=== PATIENT | male | born 1965 | race Caucasian/White ===

== ENCOUNTER 2017-04-04 11:52 | Emergency (ER) | payer MEDICAID ==
[~2017-04-04] VITALS: Ht 162.6 cm; Wt 75.0 kg
[2017-04-04 12:01] VITALS: Ht 162.6 cm; Wt 75.0 kg
--- NOTE | 2017-04-04 13:00 | ERA ---
ER Documentation Chief Complaint Date/Time DATE: 04/04/17 TIME: 12:59 Chief Complaint Pt with R ankle pain and swelling, R shoulder pain after fall. HPI The patient is a 51-year-old male, presenting to the ER because he fell off the ladder, complains of occipital headache, right shoulder pain, right ankle pain. He denies chest pain, dyspnea, abdominal pain, vomiting, diarrhea. He is smokes, denies drinking Past medical history: Hypertension, osteoarthritis Past surgical history: None ROS All systems reviewed and are negative except as per history of present illness. Medications Home Meds Reported Medications Prednisone* (Prednisone*) 20 Mg Tab, 10 MG PO DAILY, TAB 04/04/17 Olmesartan/Hydrochlorothiazide (Benicar Hct 40-25 mg Tablet) 1 Each Tablet, 1 EACH PO QAM, TAB 04/04/17 Allergies Allergies: Coded Allergies: No Known Allergy (Unverified , 04/04/17) Physical Exam Vitals Vital Signs Date Time Temp Pulse Resp B/P Pulse Ox O2 Delivery O2 Flow Rate FiO2 04/04/17 15:38 100 6.0 04/04/17 12:01 99.7 132 18 144/96 96 Physical Exam Const: No acute distress. Head: Occipital avulsion laceration, no bleeding Eyes: Normal Conjunctiva. ENT: Normal External Ears, Nose and Mouth. Neck: Full range of motion. No meningismus. Resp: Clear to auscultation bilaterally. Cardio: Regular rate and rhythm. Abd: Soft, non distended, normal bowel sounds, non tender. Skin: No petechiae or rashes. Back: No midline or flank tenderness. Ext: Right shoulder with vague tenderness, no laceration. Right ankle is edematous, tender, no laceration, palpable dorsalis and posterior tibialis Neur: Awake and alert. No focal deficit Psych: Normal Mood and Affect. Results 24 hrs Current Medications Medications (Trade) Dose Ordered Sig/Zoila Route PRN Reason Start Time Stop Time Status Last Admin Dose Admin Morphine Sulfate (morphine) 4 mg ONCE STAT IV 04/04/17 13:05 04/04/17 13:09 DC 04/04/17 13:24 Ondansetron HCl 4 mg 4 mg ONCE STAT IV 04/04/17 13:05 04/04/17 13:09 DC 04/04/17 13:24 Sodium Chloride (NS) 1,000 ml @ 1,000 mls/hr Q1H ONCE IV 04/04/17 15:00 04/04/17 15:59 DC 04/04/17 15:23 Propofol (Diprivan) 200 mg ONCE ONCE IV 04/04/17 15:00 04/04/17 15:01 DC Morphine Sulfate (morphine) 2 mg ONCE ONCE IV 04/04/17 15:00 04/04/17 15:01 DC Procedures/MDM [place] [address] Radiology Main Line: [phone] DIAGNOSTIC IMAGING REPORT Patient: TONY YEH : 1965 Age: 51 Sex: M MR #: [id number] DOS: 04/04/17 1305 Ordering MD: BALAJI VELA MD Location: E/R Room/Bed: PROCEDURE: Right shoulder 3 views CLINICAL INDICATION: Right shoulder pain and trauma. TECHNIQUE: AP internal and external rotation and transscapular Y views of the right shoulder were obtained COMPARISON: None available FINDINGS: Anterior dislocation of the humeral head in relation to the glenoid is identified. The osseous structures appear intact. No destructive bony lesions are observed. The acromioclavicular joint is unremarkable. Soft tissues are unremarkable. IMPRESSION: Anterior shoulder dislocation. If there is high clinical suspicion for additional traumatic injury, further evaluation with CT should be considered. RPTAT: AA .Terence Hoyos MD, MD Date Time Electronically viewed and signed by .Terence Hoyos MD, MD on 04/04/2017 14:14 .P/ CC: BALAJI VELA MD [place] [address] Radiology Main Line: [phone] DIAGNOSTIC IMAGING REPORT Patient: TONY YEH : 1965 Age: 51 Sex: M MR #: [id number] DOS: 04/04/17 1305 Ordering MD: BALAJI VELA MD Location: E/R Room/Bed: PROCEDURE: XR Chest. CLINICAL INDICATION: Shortness of breath TECHNIQUE: Single frontal chest x-ray. COMPARISON: None. FINDINGS: The lungs are clear of acute infiltrates, edema, effusions, or masses. There is elevation of the right hemidiaphragm. Calcific atherosclerosis of the aorta is present.. The cardiomediastinal silhouette is unremarkable. There is dislocation of the right glenohumeral joint.. IMPRESSION: No acute cardiopulmonary disease. Dislocation of the right glenohumeral joint. RPTAT: GG .Alejandro Chamorro MD, MD Date Time Electronically viewed and signed by .Alejandro Chamorro MD, MD on 04/04/2017 14:12 .L/ CC: BALAJI VELA MD [place] [address] Radiology Main Line: [phone] DIAGNOSTIC IMAGING REPORT Patient: TONY YEH : 1965 Age: 51 Sex: M MR #: [id number] DOS: 04/04/17 1305 Ordering MD: BALAJI VELA MD Location: E/R Room/Bed: PROCEDURE: CT cervical spine without contrast CLINICAL INDICATION: Trauma. Neck pain. TECHNIQUE: CT scan of the cervical spine was performed on a multidetector high -resolution CT scanner. No IV contrast was administered. Coronal and sagittal reformatted images were obtained from the axial source images. Images were reviewed on a high-resolution PACS workstation. One or more the following does reduction techniques were utilized: Automated exposure control, adjustment of the mA/ or kV according to patient's size, or use of iterative reconstruction technique. Exam CTDI = 22.06 mGy and the DLP = 395.49 mGy-cm. COMPARISON: None available. FINDINGS: There is straightening of the alignment of the cervical spine with loss of the normal cervical lordosis. There is 2 mm anterolisthesis at C3-C4 and C4-C5. No acute fracture or dislocation is seen. The vertebral body heights are preserved. No mass, hematoma, or other soft tissue abnormality is seen. There are multilevel mild to moderate degenerative changes of the cervical spine , manifested by osteophytosis and disc height narrowing, most prominent at C5- C6. Significant degenerative changes at the right articulation of the lateral mass of C1 with occipital condyle. Uncovertebral osteophytes and facet arthropathy result in moderate to severe left foraminal stenosis at C3-C4. Posterior disk osteophyte complexes contribute to mild spinal canal narrowing at C4-C5 and C5-C6. IMPRESSION: 1. Straightening of normal cervical lordosis. 2. No acute fracture or traumatic subluxation. 3. Multilevel mild to moderate degenerative changes of the cervical spine, most prominent at C5-C6. 4. Posterior disk osteophyte complexes contribute to mild spinal canal narrowing at C4-C5 and C5-C6. 5. Moderate to severe left foraminal stenosis at C3-C4. RPTAT: QQ .Carlos Amaral MD, MD Date Time Electronically viewed and signed by .Carlos Amaral MD, MD on 04/04/2017 13: 59 .N/ CC: BALAJI VELA MD [place] [address] Radiology Main Line: [phone] DIAGNOSTIC IMAGING REPORT Patient: TONY YEH : 1965 Age: 51 Sex: M MR #: [id number] DOS: 04/04/17 1305 Ordering MD: BALAJI VELA MD Location: E/R Room/Bed: PROCEDURE: CT head without intravenous contrast CLINICAL INDICATION: trauma. COMPARISON: None relevant listed. TECHNIQUE: Axial CT images from skull base to vertex with coronal and sagittal reformats. DOSE: The estimated administered radiation dose was CTDI vol = 44 mGy. DLP = 630 mGy-cm. One or more of the following dose reduction techniques were used: automated exposure control, adjustment of the mA and/or kV according to patient size, or use of iterative reconstruction. FINDINGS: Parenchyma: No acute hemorrhage, large territorial infarction, or mass. Mild amount of periventricular and subcortical white matter hypodensity, a nonspecific finding often associated with chronic microangiopathy. Ventricles: No ventriculomegaly or ventricular effacement. Extra-axial spaces: No herniation or midline shift. Paranasal sinuses: Clear. Mastoids and middle ears: Trace left mastoid effusion. Visualized orbits: Normal. Vessels: No calcified atherosclerotic arterial plaque identified. Bones: Normal. Extracranial soft tissues: Normal. Additional comment: None. IMPRESSION: No acute intracranial abnormality. RPTAT: PP Physician Jazz Date Time Electronically viewed and signed by Physician Jazz on 04/04/2017 13: 44 LG/ CC: BALAJI VELA MD [place] [address] Radiology Main Line: [phone] DIAGNOSTIC IMAGING REPORT Patient: TONY YEH : 1965 Age: 51 Sex: M MR #: [id number] DOS: 04/04/17 1305 Ordering MD: BALAJI VELA MD Location: E/R Room/Bed: PROCEDURE: XR Right Ankle 3 Views. CLINICAL INDICATION: Right ankle pain and trauma. TECHNIQUE: AP, oblique and lateral views of the right ankle was performed. COMPARISON: None. FINDINGS: Transverse, mildly displaced fracture through the lateral malleolus is identified. Additional obliquely oriented, mildly displaced fracture through the lateral malleolus is seen. The remaining osseous structures appear intact. No destructive bony lesions are observed. Mild widening of the medial aspect of the ankle mortise suggests ankle mortise disruption. Pes planus is observed. Moderate narrowing of the talonavicular joint is seen. Soft tissue swelling is seen surrounding the ankle. IMPRESSION: Fractures of the medial and lateral malleoli. Mild widening of the medial aspect of the ankle mortise that suggests ankle mortise disruption. Soft tissue swelling surrounding the ankle. Pes planus. Moderate narrowing of the talonavicular joint. If there is high clinical suspicion for additional traumatic injury, further evaluation with CT should be considered. RPTAT: AA .Terence Hoyos MD, MD Date Time Electronically viewed and signed by .Terence Hoyos MD, MD on 04/04/2017 14:17 .P/ CC: BALAJI VELA MD [place] [address] Radiology Main Line: [phone] DIAGNOSTIC IMAGING REPORT Patient: TONY YEH : 1965 Age: 51 Sex: M MR #: [id number] DOS: 04/04/17 1533 Ordering MD: BALAJI VELA MD Location: E/R Room/Bed: PROCEDURE: Shoulder x-ray CLINICAL INDICATION: Post reduction TECHNIQUE: Right shoulder 3 views COMPARISON: None FINDINGS: 3 views post reduction demonstrate anatomic alignment of the humeral head relative to the glenoid. No displaced fractures identified. Acromioclavicular articulations intact. Bones normally mineralized. Soft tissues are unremarkable. IMPRESSION: Post reduction film demonstrates anatomic alignment of the humeral head relative to the glenoid. RPTAT: HH .Brent Ernst MD, Date Time Electronically viewed and signed by .Brent Ernst MD, MD on 04/04/2017 16:28 .W/ CC: BALAJI VELA MD [place] [address] Radiology Main Line: [phone] DIAGNOSTIC IMAGING REPORT Patient: TONY YEH : 1965 Age: 51 Sex: M [id number] DOS: 04/04/17 1533 Ordering MD: BALAJI VELA MD Location: E/R Room/Bed: PROCEDURE: XR right ankle. CLINICAL INDICATION: Post fracture displacement reduction TECHNIQUE: AP , oblique and lateral views of the right ankle were performed. COMPARISON: 04/04/2017 at 13:50 FINDINGS: A cast is now present that slightly limits evaluation. Persistent separation of the previously seen medial malleolus fracture is estimated at 7 mm on the oblique view. The lateral malleolus fracture fragments are satisfactory in approximation. Persistent widening of the medial ankle mortise is again noted estimated at 7 mm. There is pes planus deformity on the lateral projection. Soft tissue swelling is again seen. There is no evidence for a radiopaque foreign body. RPTAT:HJJR IMPRESSION: 1. Interval casting and partial fracture displacement reduction of the right ankle compared to earlier the same day. 2. Separation of the medial malleolus fracture fragment is estimated at 7 mm on the oblique view. 3. Persistent widening of the medial ankle mortise approximated at 7 mm. Physician Rajat Date Time Electronically viewed and signed by Physician Rajat on 04/04/2017 16:33 JR/ CC: BALAJI VELA MD MEDICAL MAKING DECISION: The patient is a 51-year-old male, presenting with acute right bilateral malleolar fracture with acute mortise disruption, acute right anterior dislocation, acute scalp avulsion laceration. He was treated with Tdap IM, morphine 4 mg IV and 2 mg IV for pain and 1 L normal saline for clinical dehydration, Tdap IM with good response The differential diagnoses considered include but are not limited to subarachnoid hemorrhage, occult trauma, CVA, meningitis, encephalitis, hypertension, tension, migraine, cluster, narcotic withdrawal, cervical spine disease, fracture, internal derangement. Procedural Sedation: Pre-assessment performed. See preceding complete history and physical for details. Time out performed. See sedation documentation for details. Risk, benefits and alternatives were discussed with the patient. Medication(s) propofol 1 mg/kg iv Complications: No hypoxic or apneic events Recovered without incident. A minimum of 16 minutes of face to face time was performed including preparation, sedation and recovery time. The right ankle was gently reduced for posterior and stirrup splint Splint Assessment: Neurovascularly intact post splint placement with good fit. Consultation: I discussed the present with the on-call orthopedist Dr Andrew, who was made aware of the x-ray finding and the patient condition. He recommended discharge and will follow up the patient in his office Departure Diagnosis: Primary Impression: Ankle fracture, right Additional Impressions: Anterior shoulder dislocation Scalp avulsion Condition: Good Comments I discussed the findings with the patient. I advised the patient to follow-up with the pulmonary function technician orthopedist in about 1-2 days, sooner if needed and return if any concern. BALAJI VELA MD Apr 04, 2017 13:00
[2017-04-04] MEDS ORDERED: morphine 4 MG/ML VIAL IV STA (13:05)
[2017-04-04] MEDS ORDERED: ONDANSETRON 4 MG INJ IV STA (13:05)
--- NOTE | 2017-04-04 13:44 | RADRPT ---
PROCEDURE: CT head without intravenous contrast CLINICAL INDICATION: trauma. COMPARISON: None relevant listed. TECHNIQUE: Axial CT images from skull base to vertex with coronal and sagittal reformats. DOSE: The estimated administered radiation dose was CTDI vol = 44 mGy. DLP = 630 mGy-cm. One or mor e of the following dose reduction techniques were used: automated exposure control, adjustment of th e mA and/or kV according to patient size, or use of iterative reconstruction. FINDINGS: Parenchyma: No acute hemorrhage, large territorial infarction, or mass. Mild amount of periventricul ar and subcortical white matter hypodensity, a nonspecific finding often associated with chronic nnamdi roangiopathy. Ventricles: No ventriculomegaly or ventricular effacement. Extra-axial spaces: No herniation or midline shift. Paranasal sinuses: Clear. Mastoids and middle ears: Trace left mastoid effusion. Visualized orbits: Normal. Vessels: No calcified atherosclerotic arterial plaque identified. Bones: Normal. Extracranial soft tissues: Normal. Additional comment: None. IMPRESSION: No acute intracranial abnormality. RPTAT: PP Physician Jazz Date Time Electronically viewed and signed by Physician Jazz on 04/04/2017 13:44 /
--- NOTE | 2017-04-04 13:59 | RADRPT ---
PROCEDURE: CT cervical spine without contrast CLINICAL INDICATION: Trauma. Neck pain. TECHNIQUE: CT scan of the cervical spine was performed [facility] No IV contrast was administered. Coronal and sagittal reformatted images were obtained from th e axial source images. Images were reviewed on a high-resolution PACS workstation. One or more the f ollowing does reduction techniques were utilized: Automated exposure control, adjustment of the mA/ or kV according to patient's size, or use of iterative reconstruction technique. Exam CTDI = 22.06 m Gy and the DLP = 395.49 mGy-cm. COMPARISON: None available. FINDINGS: There is straightening of the alignment of the cervical spine with loss of the normal cervical lordo sis. There is 2 mm anterolisthesis at C3-C4 and C4-C5. No acute fracture or dislocation is seen. Th e vertebral body heights are preserved. No mass, hematoma, or other soft tissue abnormality is seen. There are multilevel mild to moderate degenerative changes of the cervical spine, manifested by oste ophytosis and disc height narrowing, most prominent at C5-C6. Significant degenerative changes at th e right articulation of the lateral mass of C1 with occipital condyle. Uncovertebral osteophytes and facet arthropathy result in moderate to severe left foraminal stenosis at C3-C4. Posterior disk ost eophyte complexes contribute to mild spinal canal narrowing at C4-C5 and C5-C6. IMPRESSION: 1. Straightening of normal cervical lordosis. 2. No acute fracture or traumatic subluxation. 3. Multilevel mild to moderate degenerative changes of the cervical spine, most prominent at C5-C6. 4. Posterior disk osteophyte complexes contribute to mild spinal canal narrowing at C4-C5 and C5-C6 . 5. Moderate to severe left foraminal stenosis at C3-C4. RPTAT: QQ .Carlos Amaral MD, Date Time Electronically viewed and signed by .Carlos Amaral MD, MD on 04/04/2017 13:59 .N/
--- NOTE | 2017-04-04 14:12 | RADRPT ---
PROCEDURE: XR Chest. CLINICAL INDICATION: Shortness of breath TECHNIQUE: Single frontal chest x-ray. COMPARISON: None. FINDINGS: The lungs are clear of acute infiltrates, edema, effusions, or masses. There is elevation of the rig ht hemidiaphragm. Calcific atherosclerosis of the aorta is present.. The cardiomediastinal silhouet te is unremarkable. There is dislocation of the right glenohumeral joint.. IMPRESSION: No acute cardiopulmonary disease. Dislocation of the right glenohumeral joint. RPTAT: GG .Alejandro Chamorro MD, MD Date Time Electronically viewed and signed by .Alejandro Chamorro MD, MD on 04/04/2017 14:12 .L/
--- NOTE | 2017-04-04 14:14 | RADRPT ---
PROCEDURE: Right shoulder 3 views CLINICAL INDICATION: Right shoulder pain and trauma. TECHNIQUE: AP internal and external rotation and transscapular Y views of the right shoulder were obtained COMPARISON: None available FINDINGS: Anterior dislocation of the humeral head in relation to the glenoid is identified. The osseous stru ctures appear intact. No destructive bony lesions are observed. The acromioclavicular joint is unr emarkable. Soft tissues are unremarkable. IMPRESSION: Anterior shoulder dislocation. If there is high clinical suspicion for additional traumatic injury, further evaluation with CT shou ld be considered. RPTAT: AA .Terence Hoyos MD, MD Date Time Electronically viewed and signed by .Terence Hoyos MD, on 04/04/2017 14:14 .P/
--- NOTE | 2017-04-04 14:17 | RADRPT ---
PROCEDURE: XR Right Ankle 3 Views. CLINICAL INDICATION: Right ankle pain and trauma. TECHNIQUE: AP, oblique and lateral views of the right ankle was performed. COMPARISON: None. FINDINGS: Transverse, mildly displaced fracture through the lateral malleolus is identified. Additional obliq uely oriented, mildly displaced fracture through the lateral malleolus is seen. The remaining osseo us structures appear intact. No destructive bony lesions are observed. Mild widening of the medial aspect of the ankle mortise suggests ankle mortise disruption. Pes planus is observed. Moderate na rrowing of the talonavicular joint is seen. Soft tissue swelling is seen surrounding the ankle. IMPRESSION: Fractures of the medial and lateral malleoli. Mild widening of the medial aspect of the ankle mortise that suggests ankle mortise disruption. Soft tissue swelling surrounding the ankle. Pes planus. Moderate narrowing of the talonavicular joint. If there is high clinical suspicion for additional traumatic injury, further evaluation with CT shou ld be considered. RPTAT: AA .Terence Hoyos MD, MD Date Time Electronically viewed and signed by .Terence Hoyos MD, MD on 04/04/2017 14:17 .P/
[2017-04-04] MEDS ORDERED: morphine 2 MG INJ IV ONE (15:00)
[2017-04-04] MEDS ORDERED: PROPOFOL 200 MG INJ IV ONE (15:00)
[2017-04-04] MEDS ORDERED: SOD CHLORIDE 0.9% 1,000 ML IV ONE (15:00)
--- NOTE | 2017-04-04 16:29 | RADRPT ---
PROCEDURE: Shoulder x-ray CLINICAL INDICATION: Post reduction TECHNIQUE: Right shoulder 3 views COMPARISON: None FINDINGS: 3 views post reduction demonstrate anatomic alignment of the humeral head relative to the glenoid. No displaced fractures identified. Acromioclavicular articulations intact. Bones normally minerali zed. Soft tissues are unremarkable. IMPRESSION: Post reduction film demonstrates anatomic alignment of the humeral head relative to the glenoid. RPTAT: HH .Brent Ernst MD, Date Time Electronically viewed and signed by .Brent Ernst MD, on 04/04/2017 16:28 .W/
[2017-04-04] MEDS ORDERED: OLME1TAB5 PO (16:33)
--- NOTE | 2017-04-04 16:33 | RADRPT ---
PROCEDURE: XR right ankle. CLINICAL INDICATION: Post fracture displacement reduction TECHNIQUE: AP , oblique and lateral views of the right ankle were performed. COMPARISON: 04/04/2017 at 13:50 FINDINGS: A cast is now present that slightly limits evaluation. Persistent separation of the previously seen medial malleolus fracture is estimated at 7 mm on the oblique view. The lateral malleolus fracture fragments are satisfactory in approximation. Persistent widening of the medial ankle mortise is agai n noted estimated at 7 mm. There is pes planus deformity on the lateral projection. Soft tissue swe lling is again seen. There is no evidence for a radiopaque foreign body. RPTAT:HJJR IMPRESSION: 1. Interval casting and partial fracture displacement reduction of the right ankle compared to ear lier the same day. 2. Separation of the medial malleolus fracture fragment is estimated at 7 mm on the oblique view. 3. Persistent widening of the medial ankle mortise approximated at 7 mm. Physician Rajat Date Time Electronically viewed and signed by Physician Rajat on 04/04/2017 16:33 /
[2017-04-04] MEDS ORDERED: PRED20TA PO (16:36)
[2017-04-04] MEDS ORDERED: DIPHTH/TET/ACEL PERTUSS (ADULT) 0.5 ML VIAL IM* ONE (18:00)
== END 2017-04-04 17:13 | disposition home or self-care (01) ==
LOC: E/R 11:52
DX: S82.51XA Displaced fracture of medial malleolus of right tibia, initial encounter for closed fracture (principal); S82.61XA Displaced fracture of lateral malleolus of right fibula, initial encounter for closed fracture; S43.014A Anterior dislocation of right humerus, initial encounter; S01.01XA Laceration without foreign body of scalp, initial encounter; F17.210 Nicotine dependence, cigarettes, uncomplicated; I10 Essential (primary) hypertension; R06.02 Shortness of breath; W11.XXXA Fall on and from ladder, initial encounter; Y92.9 Unspecified place or not applicable; Z23 Encounter for immunization
CPT/HCPCS: 23650; 27840; 70450; 71010; 72125; 73030; 73610; 90471; 90715; 94770; 96374; 96375; J2270; J2405; Z7502; Z7610

== ENCOUNTER 2017-04-08 22:56 | Emergency (ER) | payer MEDICAID ==
[~2017-04-08] VITALS: Ht 165.1 cm; Wt 64.0 kg
[~2017-04-08 22:56] MED LIST: OLME1TAB5 PO; PRED20TA PO
[2017-04-08 23:22] VITALS: Ht 165.1 cm; Wt 64.0 kg
--- NOTE | 2017-04-09 00:22 | ERA ---
ER Documentation Chief Complaint Date/Time DATE: 04/09/17 TIME: 00:21 Chief Complaint was here last Tuesday, he's back x redness/tightness under the bandage HPI Otherwise healthy 51-year-old male presenting 4 days status post fall off ladder with injury to the right ankle. Patient is now complaining of bruising that extends up to his knee. Patient denies any pain, fever, increased swelling , loss of motion or loss of sensation. Patient has taken ibuprofen 600 mg once 12 hours ago for pain relief. States that he is not given any other pain medications while he was here during the previous visit. Patient denies any tightness under the bandages as stated in the nursing notes. No recent travel. Patient has been elevating his leg and applying ice 10 minutes every 1-2 hours. ROS All systems reviewed and are negative except as per history of present illness. Medications Home Meds Reported Medications Prednisone* (Prednisone*) 20 Mg Tab, 10 MG PO DAILY, TAB 04/04/17 Olmesartan/Hydrochlorothiazide (Benicar Hct 40-25 mg Tablet) 1 Each Tablet, 1 EACH PO QAM, TAB 04/04/17 Allergies Allergies: Coded Allergies: No Known Allergy (Unverified , 04/04/17) PMhx/Soc Hx Alcohol Use: No Hx Substance Use: No Hx Tobacco Use: Yes (cigars) Smoking Status: Current some day smoker Physical Exam Vitals Vital Signs Date Time Temp Pulse Resp B/P Pulse Ox O2 Delivery O2 Flow Rate FiO2 04/08/17 23:22 98.8 104 20 126/83 97 Physical Exam Const: Well-appearing 51-year-old male in no acute distress. Cast on right leg on initial presentation. Head: Atraumatic Eyes: Normal Conjunctiva ENT: Normal External Ears, Nose and Mouth. Neck: Full range of motion..~ No meningismus. Resp: Clear to auscultation bilaterally Cardio: Regular rate and rhythm, no murmurs. Cap refill less than 2 seconds. Posterior tibial and dorsalis pedis pulses 2+ bilaterally. Abd: Soft, non tender, non distended. Normal bowel sounds Skin: As noted in extremity exam. Back: No midline or flank tenderness Ext: No tightness of skin of the right extremity. Patient hematomas distal to the right knee. Normal skin color on the foot. No tenderness to palpation above the injury. Mild to moderate tenderness to palpation around the ankle. No pain with passive flexion. Neur: Awake and alert. Neurovascularly intact bilaterally. Psych: Normal Mood and Affect Procedures/MDM 51-year-old male presenting 4 days status post fall off a ladder with injury to his right ankle. Previous documents have been reviewed. Physical exam revealed patchy hematomas on the right lower extremity between the ankle and knee. Neurovascular exam was unremarkable. At this time of little suspicion for injury above the ankle as noted in previous visits x-ray results, infection , pulmonary embolism, compartment syndrome or other neurovascular compromise. Patient denies any pain and states that he does not need any pain medication. Splint will be reapplied. I have spoke with the patient regarding their continued management as well as the importance to follow-up with orthopedics as previously discussed during her last visit with Dr. Coronado. Patient states that they have an appointment. They have further verbally responded that they understand their status and treatment plan. The patients vitals are stable, and their current condition is appropriate for discharge. The patient will be given discharge instructions with return precautions. Departure Diagnosis: Primary Impression: Encounter for wound re-check Condition: Stable Additional Instructions: Continue management plan as prescribed and discussed by Dr. Coronado. Return the the emergency department immediately if symptoms worsen or change. If you have any questions regarding medications, ask your pharmacist or us before you leave. If any adverse reactions occur while taking your medications, discontinue the treatment and return to the emergency department immediately. Take your medications as directed, and complete the entire course of treatment. BALAJI MARTÍNEZ PA-C Apr 09, 2017 00:22
== END 2017-04-09 01:22 | disposition home or self-care (01) ==
LOC: FTE 22:56
DX: S80.01XA Contusion of right knee, initial encounter (principal); F17.210 Nicotine dependence, cigarettes, uncomplicated; W11.XXXA Fall on and from ladder, initial encounter; Y92.9 Unspecified place or not applicable
CPT/HCPCS: 99282